=== PATIENT | female | born 1955 | race Caucasian/White ===

== ENCOUNTER 2018-05-22 08:11 | Day surgery (SDC) | payer BC ==
[2018-05-22] MEDS ORDERED: FENTAnyl 50 MCG/ML VIAL (09:48)
[2018-05-22] MEDS ORDERED: MIDAZOLAM 1 MG/ML 2 ML INJ ×2 (11:25)
== END 2018-05-22 14:11 | disposition home or self-care (01) ==
LOC: GIL 08:11
DX: Z12.11 Encounter for screening for malignant neoplasm of colon (principal); K64.8 Other hemorrhoids; K57.30 Diverticulosis of large intestine without perforation or abscess without bleeding
CPT/HCPCS: 45378